=== PATIENT | male | born 2000 | race Caucasian/White ===

== ENCOUNTER 2023-04-24 12:14 | Emergency (ER) | payer OTHER, SELFPAY ==
[2023-04-24 13:26] VITALS: BP 111/56; PULSE 63; RESP 16; TEMP 36.7; O2SAT 99; BMI 26.1
[2023-04-24 17:47] VITALS: BP 121/58; PULSE 56; RESP 18; O2SAT 99
--- NOTE | 2023-04-25 19:40 | ED_ITS ---
HPI - Extremity Problem <Yao Panda PA-C - Last Filed: 05/01/23 11:14> General Chief complaint: Extremity Problem,Nontraumatic Stated complaint: R/ ABD and leg pain Time Seen by Provider: 04/24/23 17:08 Source: patient Mode of arrival: Ambulatory History of Present Illness HPI Narrative: 22-year-old male with no reported past medical history presents to the ED with 2 days of lower back pain that radiates down his right leg. Patient states that he had been exercising, however no trauma. Denies numbness, tingling, weakness, urinary hesitancy, urinary incontinence, bowel incontinence. Related Data Allergies Allergy/AdvReac Type Severity Reaction Status Date / Time No Known Drug Allergies Allergy Verified 04/24/23 13:32 Review of Systems <Yao Panda PA-C - Last Filed: 05/01/23 11:14> Constitutional Constitutional: Denies chills, Denies fatigue, Denies fever(s), Denies frequent falls, Denies lethargy and Denies weakness Eyes Eyes: Denies change in vision, Denies eye discharge, Denies irritation and Denies loss of vision ENT Ears, Nose, Mouth, and Throat: Denies change in voice, Denies dizziness, Denies neck pain, Denies sore throat and Denies throat swelling Cardiovascular Cardiovascular: Denies chest pain, Denies irregular heart rhythm, Denies lightheadedness, Denies palpitations, Denies dyspnea, Denies dyspnea on exertion and Denies orthopnea Respiratory Respiratory: Denies cough, Denies dyspnea, Denies dyspnea on exertion and Denies wheezing Gastrointestinal Gastrointestinal: Denies abdominal pain, Denies change in bowel habits, Denies diarrhea, Denies nausea and Denies vomiting Musculoskeletal Musculoskeletal: Reports back pain, Denies neck pain, Denies numbness and Reports radiating pain into limb Integumentary/Breasts Skin/Breast: Denies pruritus, Denies erythema, Denies rash and Denies wounds Neurologic Neurologic: Denies behavioral changes, Denies confusion, Denies dizziness, Denies frequent falls, Denies loss of vision, Denies numbness and Denies weakness Psychiatric Psychiatric: Denies anxiety, Denies behavioral changes, Denies confusion, Denies depression, Denies homicidal ideation and Denies suicidal ideation Endocrine Endocrine: Denies fatigue, Denies flushing and Denies palpitations Hematologic/Lymphatic Hematologic/Lymphatic: Denies easy bruising Allergic/Immunologic Allergic/Immunologic: Denies urticaria, Denies throat swelling and Denies wheezing Patient History <Yao Panda PA-C - Last Filed: 05/01/23 11:14> Social History Smoking Status: Never smoker Smoking Status: Never smoker Substance Use Type: does not use Exam <Yao Panda PA-C - Last Filed: 05/01/23 11:14> Narrative Exam Narrative: Const General:?cooperative, healthy appearing and comfortable [facility] Head:?normal to inspection Ears:?hearing grossly normal bilaterally Nose:?external nose normal Face and sinus:?normal facial exam and sinuses nontender Mouth:?oral mucosae normal Throat:?posterior oropharynx normal Eyes General:?appearance normal, both eyes and all related structures Neck Neck:?normal visual inspection and no lymphadenopathy noted Resp Effort & Inspection:?normal respiratory effort Auscultation:?clear to auscultation bilaterally Cardio Rate:?regular rate Rhythm:?regular rhythm Musculoskeletal No midline tenderness to palpation. No paraspinal tenderness to palpation. Strength and sensation is intact. There is full range of motion. Patient is neurovascularly intact. No rashes. Neuro General:?patient alert, patient awake and patient oriented x3 Initial Vital Signs Initial Vital Signs: Vital Signs Temperature 98.1 F 04/24/23 13:26 Pulse Rate 63 04/24/23 13:26 Respiratory Rate 16 04/24/23 13:26 Blood Pressure 111/56 L 04/24/23 13:26 Pulse Oximetry 99 04/24/23 13:26 Oxygen Delivery Method Room Air 04/24/23 13:26 <Melba Neumann DO - Last Filed: 05/02/23 07:09> Initial Vital Signs Initial Vital Signs: Vital Signs Temperature 98.1 F 04/24/23 13:26 Pulse Rate 63 04/24/23 13:26 Respiratory Rate 16 04/24/23 13:26 Blood Pressure 111/56 L 04/24/23 13:26 Pulse Oximetry 99 04/24/23 13:26 Oxygen Delivery Method Room Air 04/24/23 13:26 MDM - Extremity (Nontraumatic) <Yao Panda PA-C - Last Filed: 05/01/23 11:14> [facility] Narrative Medical decision making narrative: 22-year-old male with no reported past medical history presents to the ED with 2 days of lower back pain that radiates down his right leg. History and physical exam is reassuring for no red flags, there is full range of motion, strength and sensation is intact. Patient is neurovascularly intact. No midline tenderness to palpation. No paraspinal tenderness to palpation. Patient's symptoms are most consistent with a musculoskeletal sprain/strain of the lower back. Recommend supportive care with ibuprofen, Tylenol, lidocaine patches. Prescribed Flexeril for muscle spasms. ED return precautions were discussed with patient. Patient verbalized understanding. Medical records reviewed: Yes Discharge Plan Departure Patient Disposition: Home Clinical Impression: Lower back pain Qualifiers: Chronicity: acute Back pain laterality: right Sciatica presence: with sciatica Sciatica laterality: sciatica of right side Qualified Code(s): M54.41 - Lumbago with sciatica, right side Instructions: Low Back Pain Activity Restrictions/Additional Instructions: You were evaluated in the ED today for lower back pain. It appears that you have a musculoskeletal sprain/strain of the lower back. You are being prescribed Flexeril which is a muscle relaxant. Please take that as prescribed. Please also take 800 mg of ibuprofen and 1000 mg of Tylenol every 8 hours with food. You may also apply lidocaine patches which are available [id number]. Please follow-up with your PCP as soon as possible. Return to the ED via worsening symptoms, urinary difficulties. Referrals: Provider,Jian MYLES [Primary Care Provider] - Stand Alone Forms: Patient Portal/API ED Sign-out <Melba Neumann DO - Last Filed: 05/02/23 07:09> Cosign ED Attending Kathi Attestation: I was immediately available in the department for consultation.
== END 2023-04-24 17:59 | disposition home or self-care (01) ==
PROVIDERS: Emergency Provider Student in an Organized Health Care Education/Training Program
DX: M54.41 Lumbago with sciatica, right side (principal)
CPT/HCPCS: 99281; 99282